=== PATIENT | female | born 1995 | race Caucasian/White ===

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

== ENCOUNTER → 2017-08-04 | Outpatient (CLI) | payer BC ==
[~2017-08-04] MED LIST changes: +WELLBUTRIN XL150 M2
== END ==
LOC: RAD 07:00
DX: R51 Headache (principal); F41.9 Anxiety disorder, unspecified

== ENCOUNTER → 2017-09-28 | Outpatient (CLI) | payer BC | LOC: RAD 16:04 | DX: S92.414A Nondisplaced fracture of proximal phalanx of right great toe, initial encounter for closed fracture (principal) ==